=== PATIENT | female | born 2000 | race Caucasian/White ===

== ENCOUNTER 2019-05-04 17:38 | Emergency (ER) | payer OTHER ==
[~2019-05-04] VITALS: Ht 172.7 cm; Wt 117.9 kg
--- NOTE | 2019-05-04 18:36 | NUR ---
TO ROOM NO CHANGE FROM TRIAGE
[2019-05-04 18:55] LABS: CLARITY,URINE VERY CLOUDY; GLUCOSE, URINE (UA) NEGATIVE (NEGATIVE); KETONES,URINE 2+ (NEGATIVE); LEUKOCYTE ESTERASE ,URINE 3+ (NEGATIVE); NITRITE,URINE POSITIVE (NEGATIVE); PH,URINE 6 (5-9); PROTEIN,URINE 3+ (NEGATIVE); UROBILINOGEN,URINE 8 MG/DL (NORMAL)
[2019-05-04 19:01] LABS: BILIRUBIN,URINE 3+ (NEGATIVE); COLOR,URINE ORANGE
[2019-05-04 19:03] LABS: BACTERIA,URINE FEW /HPF; WBC,URINE >100 /HPF
[2019-05-04 19:04] LABS: SQUAMOUS EPITHELIAL CELL,UR 0-2 /HPF
[2019-05-04 19:05] LABS: AMPHETAMINE SCREEN, URINE NEGATIVE (NEGATIVE); BARBITURATE SCREEN URINE NEGATIVE (NEGATIVE); BENZODIAZEPINES SCREEN URINE POSITIVE (NEGATIVE); CANNABINOID SCREEN, URINE NEGATIVE (NEGATIVE); COCAINE SCREEN URINE NEGATIVE (NEGATIVE); METHADONE STAT NEGATIVE (NEGATIVE); METHAMPHETAMINE SCREEN URINE S NEGATIVE (NEGATIVE); OPIATE SCREEN URINE NEGATIVE (NEGATIVE); OXYCODONE STAT NEGATIVE (NEGATIVE); PROPOXYPHENE STAT NEGATIVE (NEGATIVE); TRICYCLIC ANTIDEPRESSANTS SCRE NEGATIVE (NEGATIVE)
[2019-05-04] MEDS ORDERED: KETOROLAC 30 MG/ML VIAL IM ONE (19:15)
[2019-05-04] MEDS ORDERED: RX-HYDROCODONE/APAP 5/325 MG #4 TAB PK PO PRN (19:15)
[2019-05-04 19:25] LABS: BASOPHILS % (AUTO) 0 % (0-10); EOSINOPHILS % (AUTO) 0 % (0-10); HEMATOCRIT 42 % (35-52); HEMOGLOBIN 14.1 G/DL (11.5-16.0); LYMPHOCYTES # (AUTO) 1.6 X 10^3 (1.0-4.0); LYMPHOCYTES % (AUTO) 11 % (12-44); MEAN CORPUSCULAR HEMOGLOBIN 30 PG (25-34); MEAN CORPUSCULAR HGB CONC 34 G/DL (32-36); MEAN CORPUSCULAR VOLUME 90 FL (80-99); MEAN PLATELET VOLUME 10.8 FL (7.4-10.4); MONOCYTES # (AUTO) 1.2 X 10^3 (0.0-1.0); MONOCYTES % (AUTO) 8 % (0-12); NEUTROPHILS # (AUTO) 12.1 X 10^3 (1.8-7.8); NEUTROPHILS % (AUTO) 81 % (42-75); PLATELET COUNT 331 10^3/uL (130-400); RED CELL DISTRIBUTION WIDTH 12.2 % (10.0-14.5); WHITE BLOOD COUNT 14.9 10^3/uL (4.3-11.0)
[2019-05-04] MEDS ORDERED: cefTRIAXone FOR IV USE 1,000 MG in WATER (STERILE) FOR INJECTION 10 ML IV ONE (19:30)
[2019-05-04] MEDS ORDERED: KETOROLAC 30 MG/ML VIAL IVP ONE (19:30)
[2019-05-04] MEDS ORDERED: LACTATED RINGERS 1,000 ML IV SCH (19:30)
[2019-05-04 19:38] LABS: BAND NEUTROPHILS 2 %; BASOPHILS % (MANUAL) 0 %; EOSINOPHILS % (MANUAL) 0 %; LYMPHOCYTES % (MANUAL) 14 %; MONOCYTES % (MANUAL) 4 %; NEUTROPHILS % (MANUAL) 79 %; REACTIVE LYMPHOCYTES 1 %
[2019-05-04 19:39] LABS: RBC MORPH NORMAL
[2019-05-04 19:44] LABS: BILIRUBIN,TOTAL 0.4 MG/DL (0.1-1.0); CALCIUM 9.6 MG/DL (8.5-10.1); CREATININE SERUM 1.25 MG/DL (0.60-1.30); POTASSIUM 3.9 MMOL/L (3.6-5.0); TOTAL PROTEIN 7.9 GM/DL (6.4-8.2)
[2019-05-04] MEDS ORDERED: IOHEXOL 350 MG/ML 100 ML (OMNIPAQUE 350) VIAL IV ONE (19:45)
[2019-05-04] MEDS ORDERED: HOLD METFORMIN - RECEIVED CONTRAST 20 ML VIAL IV SCH (19:45)
[2019-05-04] MEDS ORDERED: NS 100 ML (IVPB) BAG IV ONE (19:45)
--- NOTE | 2019-05-04 20:04 | ED GI ---
General Chief Complaint: Abdominal/GI Problems Stated Complaint: MID ABD PAIN Nursing Triage Note: STATES SHE WAS PUT ON AZO FOR A UTI ON MONDAY. WENT TO THE CLINIC TO DAY AND PUT ON SULFA AND PYRIDIUM. CAME TO THE ER DUE TO PAIN WHICH IBUPROFEN IS NOT HELPING WITH. Sepsis Screen: No Definite Risk Source of Information: Patient Exam Limitations: No Limitations History of Present Illness Date Seen by Provider: May 04, 2019 Time Seen by Provider: 20:02 Initial Comments To ER with reports of urinary tract infection symptoms since Monday04/30/19. Symptoms of dysuria and frequency transiently improved, she awakened this morning with right flank and abdominal pain with nausea but no vomiting. No fevers or chills. Timing/Duration: 1 Week Severity/Quality: Moderate Radiation: No Radiation Activities at Onset: None Associated Symptoms: Denies Symptoms Allergies and Home Medications Allergies Coded Allergies: Penicillins (Verified Allergy, Severe, HIVES, 05/04/19) Patient Home Medication List Home Medication List Reviewed: Yes Review of Systems Review of Systems Constitutional: see HPI EENTM: No Symptoms Reported Respiratory: No Symptoms Reported Cardiovascular: No Symptoms Reported Gastrointestinal: See HPI, Abdominal Pain, Nausea Genitourinary: See HPI, Burning Musculoskeletal: no symptoms reported Skin: no symptoms reported Psychiatric/Neurological: No Symptoms Reported Endocrine: No Symptoms Reported Hematologic/Lymphatic: No Symptoms Reported Past Uvzhzbb-Fbhazn-Xzedfb Hx Patient Social History Alcohol Use: Denies Use Recreational Drug Use: No Smoking Status: Never a Smoker Recent Foreign Travel: No Contact w/Someone Who Travel: No Recent Infectious Disease Expo: No Past Medical History Surgeries: No Respiratory: No Cardiac: No Neurological: No Genitourinary: No Gastrointestinal: No Musculoskeletal: No Endocrine: No HEENT: No Cancer: No Psychosocial: No Integumentary: No Physical Exam Vital Signs Vital Signs - First Documented 05/04/19 17:40 Temp 98.8 Pulse 109 Resp 16 B/P (MAP) 182/83 (116) Pulse Ox 98 O2 Delivery Room Air Capillary Refill : Less Than 3 Seconds Height/Weight/BMI Height: 5'8.00" Weight: 260lbs. oz. 117.352058ch; BMI Method:Stated General Appearance: WD/WN, no apparent distress Respiratory: normal breath sounds, no respiratory distress, no accessory muscle use Gastrointestinal: normal bowel sounds, non tender, soft Extremities: normal range of motion, non-tender Neurologic/Psychiatric: alert, normal mood/affect, oriented x 3 Skin: normal color, warm/dry Progress/Results/Core Measures Results/Orders Lab Results Laboratory Tests Test 05/04/19 18:50 05/04/19 19:18 Range/Units Urine Color ORANGE Urine Clarity VERY CLOUDY H Urine pH 6 5-9 Urine Specific [place] 1.015 L 1.016-1.022 Urine Protein 3+ H NEGATIVE Urine Glucose (UA) NEGATIVE NEGATIVE Urine Ketones 2+ H NEGATIVE Urine Nitrite POSITIVE H NEGATIVE Urine Bilirubin 3+ H NEGATIVE Urine Urobilinogen 8 H NORMAL MG/DL Urine Leukocyte Esterase 3+ H NEGATIVE Urine RBC (Auto) 5+ H NEGATIVE Urine RBC 2-5 H /HPF Urine WBC >100 H /HPF Urine Squamous Epithelial Cells 0-2 /HPF Urine Crystals NONE /LPF Urine Bacteria FEW H /HPF Urine Casts NONE /LPF Urine Mucus NEGATIVE /LPF Urine Culture Indicated YES Urine Test NEGATIVE NEGATIVE Urine Opiates Screen NEGATIVE NEGATIVE Urine Oxycodone Screen NEGATIVE NEGATIVE Urine Methadone Screen NEGATIVE NEGATIVE Urine Propoxyphene Screen NEGATIVE NEGATIVE Urine Barbiturates Screen NEGATIVE NEGATIVE Ur Tricyclic Antidepressants Screen NEGATIVE NEGATIVE Urine Phencyclidine Screen NEGATIVE NEGATIVE Urine Amphetamines Screen NEGATIVE NEGATIVE Urine Methamphetamines Screen NEGATIVE NEGATIVE Urine Benzodiazepines Screen POSITIVE H NEGATIVE Urine Cocaine Screen NEGATIVE NEGATIVE Urine Cannabinoids Screen NEGATIVE NEGATIVE White Blood Count 14.9 H 4.3-11.0 10^3/uL Red Blood Count 4.67 4.35-5.85 10^6/uL Hemoglobin 14.1 11.5-16.0 G/DL Hematocrit 42 35-52 % Mean Corpuscular Volume 90 80-99 FL Mean Corpuscular Hemoglobin 30 25-34 PG Mean Corpuscular Hemoglobin Concent 34 32-36 G/DL Red Cell Distribution Width 12.2 10.0-14.5 % Platelet Count 331 130-400 10^3/uL Mean Platelet Volume 10.8 H 7.4-10.4 FL Neutrophils (%) (Auto) 81 H 42-75 % Lymphocytes (%) (Auto) 11 L 12-44 % Monocytes (%) (Auto) 8 0-12 % Eosinophils (%) (Auto) 0 0-10 % Basophils (%) (Auto) 0 0-10 % Neutrophils # (Auto) 12.1 H 1.8-7.8 X 10^3 Lymphocytes # (Auto) 1.6 1.0-4.0 X 10^3 Monocytes # (Auto) 1.2 H 0.0-1.0 X 10^3 Eosinophils # (Auto) 0.0 0.0-0.3 10^3/uL Basophils # (Auto) 0.0 0.0-0.1 10^3/uL Neutrophils % (Manual) 79 % Lymphocytes % (Manual) 14 % Monocytes % (Manual) 4 % Eosinophils % (Manual) 0 % Basophils % (Manual) 0 % Band Neutrophils 2 % Reactive Lymphocytes 1 % Blood Morphology Comment NORMAL Sodium Level 136 135-145 MMOL/L Potassium Level 3.9 3.6-5.0 MMOL/L Chloride Level 101 98-107 MMOL/L Carbon Dioxide Level 23 21-32 MMOL/L Anion Gap 12 5-14 MMOL/L Blood Urea Nitrogen 12 7-18 MG/DL Creatinine 1.25 0.60-1.30 MG/DL Estimat Glomerular Filtration Rate 55 BUN/Creatinine Ratio 10 Glucose Level 99 70-105 MG/DL Calcium Level 9.6 8.5-10.1 MG/DL Corrected Calcium 9.6 8.5-10.1 MG/DL Total Bilirubin 0.4 0.1-1.0 MG/DL Aspartate Amino Transf (AST/SGOT) 20 5-34 U/L Alanine Aminotransferase (ALT/SGPT) 19 0-55 U/L Alkaline Phosphatase 73 40-136 U/L Total Protein 7.9 6.4-8.2 GM/DL Albumin 4.0 3.2-4.5 GM/DL My Orders Orders - LISS MARIE APRN Ketorolac Injection (Toradol Injection) (05/04/19 19:15) Rx-Hydrocodone/Apap 5-325 Mg (Rx-Vicodin (05/04/19 19:15) Ketorolac Injection (Toradol Injection) (05/04/19 19:30) Lactated Ringers (Lr 1000 Ml Iv Solution (05/04/19 19:30) Cbc With Automated Diff (05/04/19 19:19) Comprehensive Metabolic Panel (05/04/19 19:19) Hcg,Qualitative Urine (05/04/19 19:19) Ct Abd/Pelv W (Appendicitis) (05/04/19 19:19) Ceftriaxone For Iv Use (Rocephin For I (05/04/19 19:30) Manual Differential (05/04/19 19:18) Iohexol Injection (Omnipaque 350 Mg/Ml 1 (05/04/19 19:45) Received Contrast (Hold Metformin- Contr (05/04/19 19:45) Ns (Ivpb) (Sodium Chloride 0.9% Ivpb Bag (05/04/19 19:45) Vital Signs/I&O 05/04/19 17:40 Temp 98.8 Pulse 109 Resp 16 B/P (MAP) 182/83 (116) Pulse Ox 98 O2 Delivery Room Air Blood Pressure Mean: 116 Departure Communication (Admissions) NAME: MIAN EDEN [facility] REC#: [id number] PT STATUS: REG ER : 2000 PHYSICIAN: LISS MARIE APRN ADMIT DATE: 05/04/19/ER Draft Date of Exam:05/04/19 CT ABD/PELV W (APPENDICITIS) INDICATION: Abdominal pain. Recently put on antibiotics for UTI. EXAMINATION: CT abdomen and pelvis with contrast, 05/04/2019. FINDINGS: The urinary bladder wall is diffusely thickened and likely due to the known UTI. A small area of free fluid in the pelvis is most likely physiological or reactive. Tiny cystic changes in both ovaries are noted and likely due to physiologic change. Appendix unremarkable, no surrounding inflammation seen. Remaining colon also unremarkable. There are several slightly prominent lymph nodes in the right lower quadrant, which are nonspecific and could be reactive or due to a focal mesenteric adenitis, correlate clinically. Similar findings are noted in the mid upper abdomen. No free air or free fluid in the upper abdomen. A tiny hiatal hernia is noted. Visualized lung bases are unremarkable. The liver demonstrates fatty infiltration otherwise normal. Spleen is unremarkable. The pancreas and adrenal glands are unremarkable. Gallbladder is normal. The kidneys demonstrate normal enhancement pattern. There is minimal fat stranding along the right ureter perhaps due to the known cystitis. This is likely reactive. A developing polynephritis could have a similar appearance IMPRESSION: 1. Findings along the urinary bladder are most consistent with the known cystitis. Fat stranding proximal right ureter likely reactive or due to recently passed stone versus early changes of pyelonephritis the kidney, itself, however is normal. 2. Other findings as above including slightly prominent lymph nodes scattered throughout the abdomen, which could be reactive or due to a process such as mesenteric adenitis. Correlate with symptoms. Dictated on workstation # [id number] Dict: 05/04/192024 Trans: 05/04/192110 [facility] [id number] Interpreted by: NASH GARCIA MD Electronically signed by: Impression Primary Impression: Pyelonephritis Disposition: HOME, SELF-CARE Condition: Stable Departure-Patient Inst. Decision time for Depature: 21:05 Referrals: NO,LOCAL PHYSICIAN (PCP/Family) Primary Care Physician Patient Instructions: Kidney Infection Add. Discharge Instructions: 1. Tylenol and ibuprofen for pain control and fevers 2. Pain medication as directed. Continue the antibiotics. Return to ER for any worsening. See your doctor next week for recheck. All discharge instructions reviewed with patient and/or family. Voiced understanding. LISS MARIE APRN May 04, 2019 20:04
--- NOTE | 2019-05-04 21:12 | Diagnostic Imaging Report ---
INDICATION: Abdominal pain. Recently put on antibiotics for UTI. EXAMINATION: CT abdomen and pelvis with contrast, 05/04/2019. FINDINGS: The urinary bladder wall is diffusely thickened and likely due to the known UTI. A small area of free fluid in the pelvis is most likely physiological or reactive. Tiny cystic changes in both ovaries are noted and likely due to physiologic change. Appendix unremarkable, no surrounding inflammation seen. Remaining colon also unremarkable. There are several slightly prominent lymph nodes in the right lower quadrant, which are nonspecific and could be reactive or due to a focal mesenteric adenitis, correlate clinically. Similar findings are noted in the mid upper abdomen. No free air or free fluid in the upper abdomen. A tiny hiatal hernia is noted. Visualized lung bases are unremarkable. The liver demonstrates fatty infiltration otherwise normal. Spleen is unremarkable. The pancreas and adrenal glands are unremarkable. Gallbladder is normal. The kidneys demonstrate normal enhancement pattern. There is minimal fat stranding along the right ureter perhaps due to the known cystitis. This is likely reactive. A developing polynephritis could have a similar appearance IMPRESSION: 1. Findings along the urinary bladder are most consistent with the known cystitis. Fat stranding proximal right ureter likely reactive or due to recently passed stone versus early changes of pyelonephritis the kidney, itself, however is normal. 2. Other findings as above including slightly prominent lymph nodes scattered throughout the abdomen, which could be reactive or due to a process such as mesenteric adenitis. Correlate with symptoms. Dictated by: Dictated on workstation # [id number]
[2019-05-04 21:28] VITALS: BP 134/88
== END 2019-05-04 21:28 | disposition home or self-care (01) ==
LOC: ER 17:40
DX: N12 Tubulo-interstitial nephritis, not specified as acute or chronic (principal); Z88.0 Allergy status to penicillin
CPT/HCPCS: 36415; 74177; 80053; 80306; 81000; 84703; 85007; 85027; 87088; 87186; 96374